=== PATIENT | female | born 2005 | race Two or more races ===

== ENCOUNTER 2025-04-22 13:44 | Emergency (ER) | payer OTHER ==
[~2025-04-22] VITALS: Ht 175.3 cm; Wt 72.6 kg
[2025-04-22] MEDS ORDERED: DULOXETINE HCL40 MG PO (15:29)
[2025-04-22] MEDS ORDERED: VYVANSE70 MG PO (15:30)
[2025-04-22] MEDS ORDERED: CLARITIN10 M1 PO (15:30)
[2025-04-22] MEDS ORDERED: KETOROLAC TROMETHAMINE 30 MG VIAL IU STA (16:21)
[2025-04-22] MEDS ORDERED: 0.9 % SODIUM CHLORIDE 500 ML IV SCH (16:30)
[2025-04-22] MEDS ORDERED: KETOROLAC TROMETHAMINE 30 MG VIAL ONE (17:02)
[2025-04-22 17:13] LABS: BASO % 0.4 % (0.1-1.2); EOS # 0.03 (0.04-0.54); EOS % 0.1 % (0.7-7.0); LYMPH # 2.96 (1.18-3.74); LYMPH % 14.6 % (19.3-53.1); MEAN PLATELET VOLUME 10.60 fl (9.4-12.4); MONO # 1.28 (0.24-0.82); MONO % 6.3 % (4.7-12.5); NEUT # 15.79 (1.56-6.13); NEUT % 78.0 % (34.0-71.1); RED CELL DISTRIBUTION WIDTH 12.4 % (11.6-14.4)
[2025-04-22 17:18] LABS: ERYTHROCYTE SEDIMENTATION RATE 1 mm/hr (0-20)
[2025-04-22 18:03] LABS: ALT/SGPT 21.0 U/L (12-78); AST/SGOT 18.0 U/L (15-37); BILIRUBIN TOTAL 0.64 mg/dL (0.3-1.2); BUN CREA RATIO 18.0 (7.0-25.0); CREATININE SERUM 0.72 mg/dL (0.55-1.02); GFR 103.27; GLOBULINA 3.6 G/DL (2.4-3.5); GLUCOSE FASTING 88.0 mg/dL (65-100); OSMOLALITY SERUM 273.0 MOSM/KG (275-295)
[2025-04-22 19:03] LABS: URINE APPEARANCE Clear; URINE BILIRRUBIN Negative (NEGATIVE); URINE BLOOD Negative; URINE COLOR Yellow; URINE GLUCOSE Negative (NEGATIVE); URINE KETONE Trace (NEGATIVE); URINE LEUKOCYTE Negative; URINE NITRATE Negative; URINE PROTEIN Negative (NEGATIVE); URINE UROBILINOGEN 0.2 E.U./dl
[2025-04-22 19:06] LABS: URINE BACTERIA 795.9 uL (0.0-1933); URINE EPITHELIAL CELLS 4.4 uL (0.0-38.8); URINE WBC 9.5 uL (0.0-23.2)
[2025-04-22 19:18] LABS: URINE CAST 0.00 uL (0.0-1.40); URINE RBC 1.4 uL (0.0-20.8)
[2025-04-22] MEDS ORDERED: CIPRO500 MG PO (22:33)
== END 2025-04-22 22:53 | disposition home or self-care (01) ==
LOC: ER 13:44 → EMR PED 14:51 → ER 14:51 → EMR PED 22:53
PROVIDERS: Pediatrics
DX: R10.23 Pelvic and perineal pain bilateral (principal); Z88.0 Allergy status to penicillin
CPT/HCPCS: 36415; 74177; 76856; 96365; 96366; 99283; J1885; J7030; Q9965